=== PATIENT | male | born 1975 | race Caucasian/White ===

== ENCOUNTER 2021-07-28 09:15 | Outpatient (RCR) | payer BC, SELFPAY ==
[2021-05-28 08:00] VITALS: BMI 37.4
== END 2021-08-13 07:22 | disposition home or self-care (01) ==
LOC: ANHDMC 09:15
PROVIDERS: PCP Internal Medicine; Visit Provider Internal Medicine
DX: E11.9 Type 2 diabetes mellitus without complications (principal); Z71.3 Dietary counseling and surveillance; Z71.89 Other specified counseling
CPT/HCPCS: 97802; G0108

== ENCOUNTER 2021-09-22 09:31 | Outpatient (RCR) | payer BC, SELFPAY | END 2021-12-16 09:44 | disposition home or self-care (01) | LOC: ANHDMC 09:31 | PROVIDERS: PCP Internal Medicine; Visit Provider Internal Medicine | DX: E11.9 Type 2 diabetes mellitus without complications (principal); Z71.89 Other specified counseling | CPT/HCPCS: G0108 ==

== ENCOUNTER → 2022-03-09 10:05 | Outpatient (CLI) | payer OTHER, SELFPAY ==
--- NOTE | ~2022-03-09 | XR_ITS ---
XR_CERV2-3V_CR DATE: 03/09/2022 10:31 INDICATION: Fall last night. Neck and mid back pain. TECHNIQUE: AP, open-mouth, lateral views COMPARISON: None FINDINGS: There is straightening of the cervical spine which may be due to muscle spasm. C1 and C2 are normally aligned and the odontoid process is intact. No fracture or dislocation or lock ed facet or prevertebral soft tissue swelling. Moderately severe degenerative disc disease with prominent posterior spurring at C5-6 and C6-7. Moderate degenerative disc disease with anterior posterior spurring at C7-T1. Uncovertebral joint spurring in the mid and lower cervical spine, most prominent at C5-6 and C6-7. IMPRESSION: Straightening, which may be due to muscle spasm Multilevel degenerative disc disease. Uncovertebral joint spurring, most pronounced at C5-6 and C6-7 Reviewed, dictated and finalized at [facility]. Reviewed, dictated and finalized at location B. SERVICE FOOD SERVER IMPRESSION: Straightening, which may be due to muscle spasm Multilevel degenerative disc disease. Uncovertebral joint spurring, most pronou nced at C5-6 and C6-7
--- NOTE | ~2022-03-09 | XR_ITS ---
XR thoracic spine 3V DATE: 03/09/2022 10:31 INDICATION: Fall last night. Neck and mid back pain TECHNIQUE: AP, lateral, swimmer views COMPARISON: None FINDINGS: No fracture or dislocation or bone destruction. The thoracic pedicles are intact. Prominent degenerative disc disease at C5-6 and C6-7, moderately prominent degenerative disease at C7 -T1. There is moderate right T8-9 degenerative spurring. IMPRESSION: Degenerative changes of the lower cervical and to a lesser extent thoracic spine; no frac ture or dislocation of the thoracic spine Reviewed, dictated and finalized at location B. T AVAILABILITY LEADER IMPRESSION: Degenerative changes of the lower cervical and to a lesser extent t horacic spine; no fracture or dislocation of the thoracic spine
== END ==
PROVIDERS: PCP Nurse Practitioner; Visit Provider Nurse Practitioner
DX: M50.322 Other cervical disc degeneration at C5-C6 level (principal); M50.323 Other cervical disc degeneration at C6-C7 level; M50.33 Other cervical disc degeneration, cervicothoracic region; M54.9 Dorsalgia, unspecified; W10.8XXA Fall (on) (from) other stairs and steps, initial encounter
CPT/HCPCS: 72040; 72072

== ENCOUNTER 2022-06-17 18:00 | Emergency (ER) | payer OTHER, SELFPAY ==
--- NOTE | 2022-06-17 18:04 | ED.URI ---
HPI - URI/Sore Throat General Chief Complaint: Upper Respiratory Infection Stated Complaint: Fever/Cough/Sinus Time Seen by Provider: 06/17/22 18:04 Source: patient Mode of arrival: ambulatory Limitations: no limitations History of Present Illness HPI Narrative: Nikolai is a 47-year-old male patient presenting to clinic today with complaints of fever, sore throat, cough, and runny nose x3 days. Feels very fatigued. He reports a friend he was with over the weekend tested positive for COVID. MD elicited complaint: fever, cough, sore throat, rhinorrhea and nasal congestion Related Data Allergies Allergy/AdvReac Type Severity Reaction Status Date / Time No Known Allergies Allergy Verified 06/17/22 18:10 Review of Systems Review of Systems: Pertinent positives per HPI. Patient denies any rash, headache, visual changes, dizziness, shortness of breath, chest pain, palpitations, nausea, vomiting, diarrhea, constipation, abdominal pain, or any urinary issues. PMFSH Past Medical History Medical History Arthritis Deviated septum Difficulty concentrating Fall (on) (from) other stairs and steps, initial encounter Hyperlipidemia Hypertension Sleep apnea Type 2 diabetes mellitus Surgical History Surgical History History of appendectomy 1991 History of tonsillectomy History of valvuloplasty Family History Family History Father Family history of obesity Hypertension Sibling Diabetes mellitus High triglycerides Mother Diabetes mellitus Son ADHD Social History Social History Smoking status: Never smoker Alcohol intake: never Substance use: never Lack of Transportation: No Lack of Food: Never True Current Housing: I Have Housing Concerned About Future Housing: No Difficulty Paying Gas/Electric Bills: No Difficulty Paying for Meds: No Currently Unemployed: No Education: Trade/Vocational Certificate Difficulty w/ Childcare or Family Care: No Spiritual care concerns: No Comments At the time of my signature, I reviewed and agree with the nursing past medical, surgical, social, and family history. There is no relevant family history pertinent to the patient complaint. Exam Narrative: General: Well-developed, well nourished, in no apparent distress Head: Normocephalic, atraumatic Eyes: Pupils equally round and reactive to light bilaterally, EOM intact, sclera and conjunctive clear, no discharge, lids normal Ears: TMs intact and clear, ear canals clear, no drainage, grossly hearing normal. Nose: Nares patent, clear nasal discharge, no inflammation, no sinus tenderness. Mouth: Oral pharynx without lesions or masses, good dentition, MMM. Postnasal drip Neck: Supple, trachea midline, no enlargement of anterior or posterior cervical nodes, no thyroid masses or goiter palpable. Cardio: Regular rate and rhythm, s1 and s2 normal, no murmur appreciated. Resp: Clear to auscultation bilaterally, no rhonchi, rales, wheezing or rubs Course Course Emergency Course: Portions of this record may have been created with voice recognition software. Level of Care: Express Care Visit Vital Signs Vital signs: Vital signs reviewed MDM - URI/Sore Throat MDM Narrative Medical decision making narrative: At the time of visit patient is resting comfortably on the exam table. COVID test was obtained in the clinic today and was positive. Prescription for molnupiravir was sent to the pharmacy and supportive measures were discussed with the patient he voiced understanding discharge instructions and agrees to treatment plan. Differential Diagnosis Differential diagnosis: Likely upper respiratory infection, sinusitis, viral infection, bronchitis, influenza, pharyngiti
[2022-06-17 18:12] VITALS: BP 121/71; PULSE 97; RESP 16; TEMP 38.8; O2SAT 96
== END 2022-06-17 18:28 | disposition home or self-care (01) ==
PROVIDERS: Emergency Provider Nurse Practitioner Family; PCP Internal Medicine
DX: U07.1 COVID-19 (principal); E78.5 Hyperlipidemia, unspecified; I10 Essential (primary) hypertension; E11.9 Type 2 diabetes mellitus without complications
CPT/HCPCS: 87426; 99213; C9803; G0463

== ENCOUNTER 2024-10-18 08:36 | Outpatient (CLI) | payer OTHER, SELFPAY ==
--- OUTSIDE RECORDS SUMMARY | 2024-10-18 08:45 | XMS_ITS ---
Author Organization Unknown Medications Medication Instructions Effective Dates (start - stop) Status sertraline 50 MG Oral Tablet [id number] 0:00:00Z - Completed metformin hydrochloride 1000 MG Oral Tablet - Completed - - Compl eted metformin hydrochloride 1000 MG Oral Tablet - Completed - - Compl eted - - Compl eted sertraline 50 MG Oral Tablet [id number] 0:00:00Z - Completed sertraline 25 MG Oral Tablet [id number] 0:00:00Z - Completed sertraline 50 MG Oral Tablet [id number] 0:00:00Z - Completed - - Compl eted metformin hydrochloride 1000 MG Oral Tablet - Completed - - Compl eted - - Compl eted - - Compl eted - - Compl eted - - Compl eted lisinopril 30 MG Oral Tablet [id number] 0:00:00Z - Completed - - Compl eted Patient Care team information Name Category Status Period Participants - - Proposed period not known -
--- OUTSIDE RECORDS SUMMARY | 2024-10-18 08:45 | XMS_ITS | Continuity of Care Document ---
Author Organization [facility] Address [address] [place] [address] Insurance Providers Payer Plan Claims Address Claims Phone Policy Number Group Number Relation Employer Guarantor Name Guarantor Guarantor Address Guarantor Phone [place] [id number] [place] g[place] [id number] [place] [id number] [place] [id number] Problems Unknown Problems Results Test Result Date/Time Value / Unit Interp. Refere nce Range Comp. Metabolic Panel (14)[[id number]] Collected: 01/24/2024 03:07 PM Specimen Received: 01/24/2024 05:00 AM Source: [facility] Glucose [[id number]] 01/25/2024 12:17 PM 118 mg/dL H 70-99 mg/dL BUN [[id number]] 01/25/2024 12:17 PM 19 mg/dL 6-2 4 mg/dL Creatinine [[id number]] 01/25/2024 12:18 PM 0.97 mg/dL 0.76-1.27 mg/dL eGFR [[id number]] 01/25/2024 12:18 PM 95 mL/min/1.73 >59 mL/min/1.73 BUN/Creatinine Ratio [[id number]] 01/25/2024 12:18 PM 20 9-20 Sodium [[id number]] 01/25/2024 12:04 PM 140 mmol/L 134-144 mmol/L Potassium [[id number]] 01/25/2024 12:05 PM 4.4 mmol/L 3.5-5.2 mmol/L Chloride [[id number]] 01/25/2024 12:04 PM 103 mmol/L 96-106 mmol/L Carbon Dioxide, Total [[id number]] 01/25/2024 12:17 PM 27 mmol/L 20-29 mmol/L Calcium [[id number]] 01/25/2024 11:54 AM 9.4 mg/dL 8.7-10.2 mg/dL Protein, Total [[id number]] 01/25/2024 12:18 PM 6.7 g/dL 6.0-8.5 g/dL Albumin [[id number]] 01/25/2024 12:17 PM 4.4 g/dL 4.1-5.1 g/dL Globulin, Total [[id number]] 01/25/2024 12:18 PM 2.3 g/dL 1.5-4.5 g/dL Bilirubin, Total [[id number]] 01/25/2024 12:17 PM 0.4 mg/dL 0.0-1.2 mg/dL Alkaline Phosphatase [[id number]] 01/25/2024 12:17 PM 71 IU/L 44-121 IU/L AST (SGOT) [[id number]] 01/25/2024 12:17 PM 28 IU/L 0-40 IU/L ALT (SGPT) [[id number]] 01/25/2024 12:17 PM 43 IU/L 0-44 IU/L Lipid Panel[[id number]] Collected: 01/24/2024 03:07 PM Specimen Received: 01/24/2024 05:00 AM Source: [facility] Cholesterol, Total [[id number]] 01/25/2024 12:27 PM 177 mg/dL 100-199 mg/d L Triglycerides [[id number]] 01/25/2024 12:34 PM 325 mg/dL H 0-149 mg/dL HDL Cholesterol [[id number]] 01/25/2024 12:34 PM 29 mg/dL L >39 mg/dL VLDL Cholesterol Mina [[id number]] 01/25/2024 12:34 PM 54 mg/dL H 5-40 mg/dL LDL Chol Calc (NIH) [[id number]] 01/25/2024 12:34 PM 94 mg/dL 0-99 mg/dL Albumin/Creatinine Ratio,Uri ne[[id number]] Collected: 01/24/2024 03:07 PM Specimen Received: 01/24/2024 05:00 AM Source: [facility] Creatinine, Urine [[id number]] 01/25/2024 02:22 PM 258.8 mg/dL Not Estab. m g/dL Albumin, Urine [[id number]] 01/25/2024 02:22 PM 6.9 ug/mL Not Estab. ug/mL Alb/Creat Ratio [[id number]] 01/25/2024 02:22 PM 3 mg/g creat 0-29 mg/g creat Normal: 0 - 29 Moderately in creased: 30 - 300 Severely increased: >300 Hemoglobin A1c[[id number]] Collected: 01/24/2024 03:07 PM Specimen Received: 01/24/2024 05:00 AM Source: [facility] Hemoglobin A1c [[id number]] 01/25/2024 10:57 AM 6.6 % H 4.8-5.6 % . Prediabetes: 5.7 - 6.4 Bernice betes: >6.4 Glycemic control for adults with diabetes: 7.0 Allergies, adverse reactions, alerts No known allergies and adverse reactions Medications No administered medications reported Vital Signs No vital signs reported Social History No smoking Hx information available
--- OUTSIDE RECORDS SUMMARY | 2024-10-18 08:45 | XMS_ITS | Clinical Summary ---
Author Organization [facility] Address [address] [place] [address] Care Team Providers Care Medical Collections Specialist Name Role Phone Jyotisameer Bernardo Dontrell DO Primary Care Provider Source Comments [facility],non-owned Affiliates and Associated Physician Practices is amultiple site organization consisting of ambulatory clinics and hospital sitesin [place], [place], [place] and [place]. This disclosure is being madepursuant to the Care Everywhere program and may not contain all information available regarding this patient. Last updated 17.[facility] Active Problems Problem Noted Date Diagnosed Date Other specified disorders of nose and nasal sinu ses 07/28/2013 Hypertrophy of nasal turbinates 07/28/2013 Obstructive sleep apnea 07/28/2013 Deviated nasal septum 07/28/2013 Family History Medical History Relation Name Comments Alcohol abuse Sister Hypertension Sister Relation Name Status Comments Sister Social History Tobacco Use Types Packs/Day Years Used Date Smoking Tobacco: Never Smokeless Tobacco: Never Alcohol Use Standard Drinks/Week Comments No 0 (1 standard drink = 0.6 oz pur e alcohol) Sex and Gender Information Value Date Recorded Sex Assigned at Not on file 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 Gender Identity Not on file Sexual Orientation Not on file Last Filed Vital Signs Vital Sign Reading Time Taken Comments Blood Pressure 136/92 01/12/2014 8:07 AM CDT Pulse 86 01/12/2014 8:07 AM CDT Temperature 36.2 C (97.2 F) 01/12/2014 8:07 AM CDT Respiratory Rate 16 01/12/2014 8:07 AM CDT Oxygen Saturation 92% 08/29/2013 1:45 PM CDT Inhaled Oxygen Concentration - - Weight 115.7 kg (255 lb) 01/12/2014 8:07 AM CDT Height 170.2 cm (5' 7) 01/12/2014 8:07 AM CDT Body Mass Index 39.94 01/12/2014 8:07 AM CDT Plan of Treatment Health Maintenance Due Date Last Done Comments COLOGUARD (AGES 45-75) - COL ON CA SCREENING 1973 COLON MONITORING 1973 COLONOSCOPY - COLON CA SCREENING 1973 CT COLONOGRAPHY - COLON CA SCREENING 1973 Colorectal Cancer Screening 1973 FIT - COLON CA SCREENING 1973 FLEX SIG - COLON CA SCREENING 1973 LIPID TESTING 1973 HIV SCREENING 1988 HEPATITIS C SCREENING 03/18/1991 DTAP/TDAP/TD VACCINES (1 - Tdap) 1992 HEPATITIS B VACCINE (1 of 3 - 19+ 3-dose series) 1992 PNEUMOCOCCAL VACCINE 50+ (1 of 1 - PCV) 2023 ZOSTER VACCINE (1 of 2) 2023 COVID-19 VACCINE (1 - 2023-2 5 season) 2023 DEPRESSION SCREENING 04/05/2024 INFLUENZA VACCINE (#1) 2024 HIB VACCINE Aged Out No longer eligi ble based on patient's age to complete this topic HPV VACCINE Aged Out No longer eligi ble based on patient's age to complete this topic MENINGOCOCCAL (Group B) VACC INE SHARED DECISION-MAKING Aged Out No longer eligibl e based on patient's age to complete this topic MENINGOCOCCAL GROUPS A/C/Y/W VACCINE Aged Out No longer eligible b ased on patient's age to complete this topic Care Teams Medical Collections Specialist Relationship Specialty Start Date End Date Bernardo Herndon DO PCP - General 04/24/13
--- NOTE | 2024-11-13 10:01 | WPDSLEEPSTUD ---
Sleep Study Date of Study: 10/18/24 Ordering Provider: Madina Jacob DO Interpreting Physician: Kenyetta Orantes MD Sleep Study Type: CPAP Titration Height: 1.7 m Weight: 97.522 kg Body Mass Index: 33.6 Neck Circumference (inches): 17 [place]: 19 Reason for Sleep Study Hypersomnolence Sleep History Nikolai Urbano is a 49-year-old man with hypersomnolence. he was diagnosed with obstructive sleep apnea in 2003 and has been on CPAP ever since. His spouse noted this CPAP is not controlling his apneic events. He is currently on CPAP 16 cm. He has had several surgeries including tonsillectomy and adenoidectomy, UPPP. He rarely awakens from sleep feeling short of breath. He rarely wakes at night with heartburn, belching or coughing.??He frequently snores, and frequently snores loudly enough that others complain. He rarely has trouble sleeping when he has a cold. He rarely wakes up gasping for breath during the night. He frequently has breathing problems at night. He rarely sweats excessively at night. He never notices his heart pounding or beating irregularly during the night. He frequently falls asleep during the day. He .frequently falls asleep involuntarily, however rarely falls asleep while driving. He never experiences loss of muscle tone with strong emotion. He frequently has daytime difficulty at work due to excessive sleepiness. He never feels paralyzed on waking or falling asleep. He occasionally experiences vivid dreams upon waking or falling asleep. He never feels afraid of going to sleep. He never has nightmares. He occasionally recalls his dreams. He rarely has thoughts racing through his mind. He occasionally feels sad or depressed. He occasionally feels anxiety. He occasionally notices parts of his body jerk. He never kicks during the night. He never feels crawling or aching feelings in his legs. He rarely feels leg pain at night. He never has morning jaw pain, never grinds his teeth at night. He rarely feels bothered by pain during the day, rarely frequently awakened by pain during the night. He frequently wakes up feeling stiff in the morning, and he frequently wakes feeling sore or achy. He occasionally awakens with pain in his neck, spine, or joints. Normal bedtime is10:30 pm, falling asleep within 10-30 minutes, waking once at most at night, sometimes not waking at all. when he wakes at night he returns to bed easily after going to the bathroom. He is usually awakened by his spouse getting up. His normal wake time is 5:00 a.m.. He keeps a similar schedule on weekends, bedtime is 11:00 p.m., wake time is between 6:00 a.m. and 7:00 a.m.. His sleep may be disturbed by back pain or stiffness especially if he stays in the bed for more than 7 hours. He does not generally take naps. A short nap lasting 10-15 minutes is not refreshing. He is usually drowsy for 3 hours after waking. Habits:??Tobacco: Never smoker Caffeine: 1 serving per day Alcohol: none Recreational substances: none PMFSH Past Medical History Medical History Right foot pain Yawning COVID-19 Fall (on) (from) other stairs and steps, initial encounter Difficulty concentrating Deviated septum Sleep apnea Arthritis Type 2 diabetes mellitus Hypertension Hyperlipidemia Surgical History Surgical History History of valvuloplasty History of tonsillectomy History of appendectomy 1990 Family History Family History Father Family history of obesity Hypertension Sibling Diabetes mellitus High triglycerides Mother Diabetes mellitus Son ADHD Social History Social History Smoking status: Never smoker Alcohol intake: never Substance use: never Lack of Transportation: No Lack of Food: Never True Current Housing: I Have Housing Concerned About Future Housing: No Difficulty Paying Gas/Electric Bills: No Difficulty Paying for Meds: No Currently Unemployed: No Education: Trade/Vocational Certificate Difficulty w/ Childcare or Family Care: No Spiritual care concerns: No Medications Home Medications ?Medication ?Instructions ?Recorded ?Confirmed ?Type blood sugar diagnostic ([employer]Touch #100 ea 11/03/21 09/14/24 Rx Verio test strips) lisinopril 30 mg tablet See Rx Instructions .Route 06/13/24 09/14/24 Rx .COMPLEX #90 tabs sertraline 50 mg tablet 50 mg PO DAILY #90 tabs 06/13/24 09/14/24 Rx eszopiclone 2 mg tablet (Lunesta) 2 mg PO QHS #1 tablet 09/14/24 09/14/24 Rx metformin 1,000 mg tablet 500 mg (1/2 x 1,000 mg) .Route 09/14/24 09/14/24 Rx .COMPLEX #180 tabs semaglutide 0.25 mg or 0.5 mg (2 See Rx Instructions .Route 09/14/24 09/14/24 Rx mg/3 mL) subcutaneous pen injector .COMPLEX #9 mL (Ozempic) Sleep Procedure A full CPAP polysomnogram using the [email or web address] multi-channel system recorded the standard physiologic parameters including EEG, EOG, submentalis EMG, anterior tibialis EMG, EKG, body position, nasal and oral airflow using nasal pressure sensor and thermistor. Respiratory parameters of chest and abdominal movements were recorded with Respiratory Inductance Plethysmography belts. Oxygen saturation was recorded by pulse oximetry. Video monitoring was also performed. Sleep stages, periodic limb movements, and EEG arousals were scored in 30 second epochs according to the criteria of the AASM Scoring Manual. The Apnea-Hypopnea Index was calculated using CMS guidelines for definition of hypopnea while scoring respiratory events. The patient self-administered Lunesta 1 mg at the beginning of the study. The patient was started on CPAP using a medium ResMed AirFit F40 fullface mask with heated humidity, initial pressure was CPAP 5, titrated to CPAP 7, CPAP 8, final pressure was CPAP 9. At CPAP 9 cm, the patient spent 174 minutes bed, 3.5 minutes awake, 160 minutes in non-REM and 54.5 minutes in REM. Sleep efficiency was 98%. The residual apnea-hypopnea index was 0.4 and the lowest saturation was 91%. He had supine REM at this setting. This is the optimal pressure. Sleep Architecture The total recording time was 448.0 minutes. The total sleep time was 427.0 minutes. Sleep latency was 6.7 minutes. REM latency was 86.5 minutes. Sleep efficiency was 95.3%. The patient had 10 awakenings for an awakening index of 1.4. Wake after Sleep Onset time was 14.0 minutes. The patient spent 20.0 minutes, 4.7% of total sleep time in Stage N1. The patient spent 302.5 minutes, 70.8% in Stage N2. The patient spent 2.5 minutes, 0.6% in Stage N3. The patient spent 102.0 minutes, 23.9% in Stage REM. Respiratory Analysis The patient had 19 hypopneas, 5 obstructive apneas, no mixed apneas, and 3 central apneas for an overall Apnea Hypopnea Index of 3.7 events per hour. The REM Apnea Hypopnea Index was 8.8. The NREM Apnea Hypopnea Index was 2.0. The patient had a Central Apnea Hypopnea Index of 0.4. There were no Respiratory Effort Related Arousals. The Respiratory Disturbance Index is 6.2 events per hour. There was no evidence of Anastacio-Blake Respirations. Arousals There were 50 total arousals for an arousal index of 7.0. There were 41 spontaneous arousals for an index of 5.8. There were 3 arousals due to respiratory events for an index of 0.4. There were no arousals due to periodic limb movements. There were 6 arousals due to isolated limb movements for an index of 0.8. Periodic Limb Movements The patient had 48 isolated limb movements with an index of 6.7. The patient had 31 periodic limb movements with index of 4.4. Patient had a total of 79 limb movements with a total limb movement index of 11.1. Oximetry Data The patient had an average oxygen saturation of 92.9% in sleep with a minimum oxygen saturation of 84% and a maximum oxygen saturation of 97%. The patient had 23 oxygen desaturations that were 4% or greater resulting in an Oxygen Desaturation Index of 3.4. The patient spent 0.9 minutes, 0.2% of total sleep time with an oxygen saturation below 88%. Snoring Profile At the optimal pressure, snoring was eliminated. Cardiac Profile The EKG showed normal sinus rhythm. The patient had an average pulse rate of 63.2 bpm with a minimum pulse rate of 56 bpm and a maximum pulse rate of 82 bpm. No arrhythmias noted. EEG Profile Unremarkable, no evidence of seizures. Assessment and Plan Assessment and Plan (1) DEEP (obstructive sleep apnea): Code(s): G47.33 - Obstructive sleep apnea (adult) (pediatric) Status: Acute Assessment and Plan: This full night CPAP titration on 10/18/2024 shows a successful study with an optimal pressure of CPAP 9 cm using a medium ResMed AirFit F 40 fullface mask and heated humidity. At this pressure the patient spent 174 minutes bed, 3.5 minutes awake, 160 minutes in non-REM and 54.5 minutes in REM. Sleep efficiency was 98%. The residual apnea-hypopnea index was 0.4 and the lowest saturation was 91%. This is the optimal pressure. The patient should be prescribed this ResMed equipment as well as tubing, filters and reservoir. This should be used with all episodes of sleep. Compliance should be reviewed within 31-90 days of starting therapy for usage greater than 4 hours per night greater than 70% of the nights. The patient should be asked about symptoms such as excessive daytime sleepiness, quality of sleep, decreased nocturia, increased mental functioning such as memory, mood, and concentration. He reports that he was using CPAP 16 cm before having this titraiton. CLninical correlation is recommended. If he use PAP up until the night of the study, he might have been under titrated during this CPAP titration. BMi is 33.7 Weight management is advised. Clinical data suggests that weight loss of 10% can reduce the severity of respiratory events and snoring and improve AHI by as much as 25%. Data The data obtained during this sleep study is adequate for interpretation. Certification This sleep study has been reviewed by a board certified sleep medicine physician.
[2024-11-23 13:44] VITALS: BMI 33.6
== END 2024-10-19 06:24 | disposition home or self-care (01) ==
LOC: ANHCSM 08:37
PROVIDERS: PCP Clinical Nurse Specialist; Visit Provider Family Medicine
DX: G47.33 Obstructive sleep apnea (adult) (pediatric) (principal)
CPT/HCPCS: 95811